=== PATIENT | female | born 1960 | race American Indian/Alaskan Native ===

== ENCOUNTER 2020-04-15 12:01 | Emergency (ER) | payer SELFPAY ==
[2020-04-15 15:02] LABS: Bilirubin,Urine NEG (Negative); Blood,Urine NEG (Negative); Color,Urine Yellow (Yellow); Mucus,Urine 1+ /HPF; Protein,Urine <15 mg/dL mg/dL (Negative)
--- NOTE | 2020-04-15 16:20 | Emergency Department Report ---
ED General Adult HPI - General Chief complaint: Back Pain/Injury Stated complaint: BACK AND SHOULDER PAIN Time Seen by Provider: 04/15/20 14:01 Source: patient Mode of arrival: Ambulatory Limitations: No Limitations - Related Data Previous Rx's Medication Instructions Recorded Last Taken Type Amoxicillin [Trimox CAP] 500 mg PO Q8H #30 capsule 09/27/13 Unknown Rx Antipyrine/Benzocaine/Glycerin 2 drops AU Q8HR #1 bottle 09/27/13 Unknown Rx [Auralgan] Ciprofloxacin/Hydrocortisone 4 drop OT BID #1 bottle 09/27/13 Unknown Rx [Cipro HC Otic 0.2%-1%] Meloxicam [Mobic] 7.5 mg PO QDAY #30 tablet 04/15/20 Unknown Rx Trolamine Salicylate/Aloe Vera 85 gm TP TID PRN #141.7 cream..g. 04/15/20 Unknown Rx [Aspercreme 10% Cream] Allergies Allergy/AdvReac Type Severity Reaction Status Date / Time No Known Allergies Allergy Verified 04/15/20 12:09 ED Review of Systems ROS: Stated complaint: BACK AND SHOULDER PAIN Other details as noted in HPI ED Past Medical Hx - Past Medical History Hx Arthritis: Yes - Surgical History Past Surgical History?: No - Social History Smoking Status: Never Smoker Substance Use Type: Alcohol, Marijuana - Medications Home Medications: Home Medications Medication Instructions Recorded Confirmed Last Taken Type Amoxicillin [Trimox CAP] 500 mg PO Q8H #30 capsule 09/27/13 Unknown Rx Antipyrine/Benzocaine/Glycerin 2 drops AU Q8HR #1 bottle 09/27/13 Unknown Rx [Auralgan] Ciprofloxacin/Hydrocortisone 4 drop OT BID #1 bottle 09/27/13 Unknown Rx [Cipro HC Otic 0.2%-1%] Meloxicam [Mobic] 7.5 mg PO QDAY #30 tablet 04/15/20 Unknown Rx Trolamine Salicylate/Aloe Vera 85 gm TP TID PRN #141.7 cream..g. 04/15/20 Unknown Rx [Aspercreme 10% Cream] ED Physical Exam - General Limitations: No Limitations General appearance: alert, in no apparent distress - Head Head exam: Present: atraumatic, normocephalic - Eye Eye exam: Present: normal appearance - ENT ENT exam: Present: mucous membranes moist - Neck Neck exam: Present: normal inspection - Respiratory Respiratory exam: Present: normal lung sounds bilaterally. Absent: respiratory distress - Cardiovascular Cardiovascular Exam: Present: regular rate, normal rhythm. Absent: systolic murmur, diastolic murmur, rubs, gallop - GI/Abdominal GI/Abdominal exam: Present: soft, normal bowel sounds - Extremities Exam Extremities exam: Present: normal inspection - Expanded Upper Extremity Exam Left Shoulder Exam: Present: full ROM, tenderness over AC joint. Absent: swelling, abrasion, laceration Upper Arm exam: Present: normal inspection, full ROM Elbow exam: Present: normal inspection, full ROM Forearm Wrist exam: Present: normal inspection, full ROM Hand Wrist exam: Present: normal inspection, full ROM - Back Exam Back exam: Present: normal inspection - Neurological Exam Neurological exam: Present: alert, oriented X3 - Psychiatric Psychiatric exam: Present: normal affect, normal mood - Skin Skin exam: Present: warm, dry, intact, normal color. Absent: rash ED Course Vital Signs 04/15/20 12:14 Temperature 98.1 F Pulse Rate 71 Respiratory 18 Rate Blood Pressure 160/89 O2 Sat by Pulse 100 Oximetry Critical care attestation.: If time is entered above; I have spent that time in minutes in the direct care of this critically ill patient, excluding procedure time. ED Disposition Clinical Impression: Shoulder pain, left Qualifiers: Chronicity: acute Qualified Code(s): M25.512 - Pain in left shoulder Left lumbar pain Qualifiers: Chronicity: acute Sciatica presence: with sciatica Disposition: DC-01 TO HOME OR SELFCARE Is pt being admited?: No Does the pt Need Aspirin: No Condition: Stable Instructions: Osteoarthritis (ED), Meloxicam (By mouth) Additional Instructions: Recommend taking Ibuprofen or Tylenol arthritis and try aspercream rub. Prescriptions: Trolamine Salicylate/Aloe Vera [Aspercreme 10% Cream] 85 gm TP TID PRN #141.7 cream..g. PRN Reason: Pain, Moderate (4-6) Meloxicam [Mobic] 7.5 mg PO QDAY #30 tablet Referrals: PRIMARY CARE, [Primary Care Provider] - 3-5 Days [facility] [Provider Group] - 3-5 Days Forms: Work/School Release Form(ED)
[2020-04-15 16:33] VITALS: BP 138/78
== END 2020-04-15 16:30 | disposition home or self-care (01) ==
LOC: ED 12:01
DX: M25.512 Pain in left shoulder (principal); M54.9 Dorsalgia, unspecified; M19.90 Unspecified osteoarthritis, unspecified site; F12.10 Cannabis abuse, uncomplicated; Z79.899 Other long term (current) drug therapy
CPT/HCPCS: 81001; 99283

== ENCOUNTER 2020-05-03 16:12 | Emergency (ER) | payer SELFPAY ==
[2020-05-03 17:32] VITALS: BP 149/89
--- NOTE | 2020-05-03 19:59 | Emergency Department Report ---
ED Eye Problem HPI - General Chief complaint: Eye Problems Stated complaint: POSS PINK EYE Time Seen by Provider: 05/03/20 19:55 Source: patient Mode of arrival: Ambulatory Limitations: No Limitations - History of Present Illness Initial comments: Patient is a 59-year-old female presents emergency room with complaints of bilateral eye irritation that began a week ago. She states that initially began in the left eye but then she also began experiencing in the right eye. She states that she has crusting, eyelash matting, frequent watering, itching eyes. She states that she has been taking [id number] pinkeye relief drops with some relief. She denies getting anything into the eye. She denies any contact lens use. She denies any use of false lashes or glue. She denies any vision changes. Past medical history of hypertension. No allergies medications. - Related Data Previous Rx's Medication Instructions Recorded Last Taken Type Amoxicillin [Trimox CAP] 500 mg PO Q8H #30 capsule 09/27/13 Unknown Rx Antipyrine/Benzocaine/Glycerin 2 drops AU Q8HR #1 bottle 09/27/13 Unknown Rx [Auralgan] Ciprofloxacin/Hydrocortisone 4 drop OT BID #1 bottle 09/27/13 Unknown Rx [Cipro HC Otic 0.2%-1%] Meloxicam [Mobic] 7.5 mg PO QDAY #30 tablet 04/15/20 Unknown Rx Trolamine Salicylate/Aloe Vera 85 gm TP TID PRN #141.7 cream..g. 04/15/20 Unknown Rx [Aspercreme 10% Cream] Ketotifen Fumarate [Allergy Eye 1 drop OP BID 7 Days #1 drops 05/03/20 Unknown Rx Drops] Polymyxin B Sulf/Trimethoprim 1 drop OP Q3HR 7 Days #1 drops 05/03/20 Unknown Rx [Polytrim Eye Drops] Allergies Allergy/AdvReac Type Severity Reaction Status Date / Time No Known Allergies Allergy Verified 04/15/20 12:09 ED Review of Systems ROS: Stated complaint: POSS PINK EYE Other details as noted in HPI Comment: All other systems reviewed and negative ED Past Medical Hx - Past Medical History Previous Medical History?: Yes Hx Arthritis: Yes - Social History Smoking Status: Never Smoker Substance Use Type: Alcohol, Marijuana - Medications Home Medications: Home Medications Medication Instructions Recorded Confirmed Last Taken Type Amoxicillin [Trimox CAP] 500 mg PO Q8H #30 capsule 09/27/13 Unknown Rx Antipyrine/Benzocaine/Glycerin 2 drops AU Q8HR #1 bottle 09/27/13 Unknown Rx [Auralgan] Ciprofloxacin/Hydrocortisone 4 drop OT BID #1 bottle 09/27/13 Unknown Rx [Cipro HC Otic 0.2%-1%] Meloxicam [Mobic] 7.5 mg PO QDAY #30 tablet 04/15/20 Unknown Rx Trolamine Salicylate/Aloe Vera 85 gm TP TID PRN #141.7 cream..g. 04/15/20 Unknown Rx [Aspercreme 10% Cream] Ketotifen Fumarate [Allergy Eye 1 drop OP BID 7 Days #1 drops 05/03/20 Unknown Rx Drops] Polymyxin B Sulf/Trimethoprim 1 drop OP Q3HR 7 Days #1 drops 05/03/20 Unknown Rx [Polytrim Eye Drops] ED Physical Exam - General Limitations: No Limitations General appearance: alert, in no apparent distress - Head Head exam: Present: atraumatic, normocephalic - Eye Eye exam: Present: PERRL, EOMI, conjunctival injection (mild bilaterally). Absent: periorbital swelling, periorbital tenderness Pupils: Present: normal accommodation - ENT ENT exam: Present: mucous membranes moist - Respiratory Respiratory exam: Absent: respiratory distress, accessory muscle use - Neurological Exam Neurological exam: Present: alert, oriented X3 - Psychiatric Psychiatric exam: Present: normal affect, normal mood - Skin Skin exam: Present: warm, dry, intact ED Course Vital Signs 05/03/20 17:31 Temperature 98.5 F Pulse Rate 92 H Respiratory 16 Rate Blood Pressure 149/89 [Right] O2 Sat by Pulse 98 Oximetry ED Medical Decision Making - Medical Decision Making Patient is a 59-year-old female presents emergency room with complaints of bilateral eye irritation that began a week ago. She states that initially began in the left eye but then she also began experiencing in the right eye. She states that she has crusting, eyelash matting, frequent watering, itching eyes. She states that she has been taking [id number] pinkeye relief drops with some relief. She denies getting anything into the eye. She denies any contact lens use. She denies any use of false lashes or glue. She denies any vision changes. Past medical history of hypertension. No allergies medications. vitals are stable. on exam: Mild conjunctival injection bilaterally, PERRLA, EOMI, no periorbital edema or erythema, no visualized foreign bodies or ulcerations. Examination consistent with very mild conjunctivitis. Patient given prescription for Zaditor and Polytrim eyedrops. Advised patient Please use medication as prescribed. Separate eyedrops by one hour. Follow-up with a primary care doctor. Follow-up with plate and weld inspector if symptoms are not improving. Return to emergency room for any new or worsening symptoms. Critical care attestation.: If time is entered above; I have spent that time in minutes in the direct care of this critically ill patient, excluding procedure time. ED Disposition Clinical Impression: Conjunctivitis Qualifiers: Conjunctivitis type: acute Acute conjunctivitis type: unspecified Laterality: bilateral Qualified Code(s): H10.33 - Unspecified acute conjunctivitis, bilateral Disposition: DC- TO HOME OR SELFCARE Is pt being admited?: No Does the pt Need Aspirin: No Condition: Stable Instructions: Conjunctivitis (ED) Additional Instructions: Please use medication as prescribed. Separate eyedrops by one hour. Follow-up with a primary care doctor. Follow-up with plate and weld inspector if symptoms are not improving. Return to emergency room for any new or worsening symptoms. Prescriptions: Ketotifen Fumarate [Allergy Eye Drops] 1 drop OP BID 7 Days #1 drops Polymyxin B Sulf/Trimethoprim [Polytrim Eye Drops] 1 drop OP Q3HR 7 Days #1 drops Referrals: KB STARR MD [Staff Physician] - 2-3 Days [facility] [Provider Group] - 2-3 Days [facility] [Provider Group] - 2-3 Days Forms: Work/School Release Form(ED) Time of Disposition: 19:57 Print Language: TURKISH
== END 2020-05-03 20:00 | disposition home or self-care (01) ==
LOC: ED 16:12
DX: H10.33 Unspecified acute conjunctivitis, bilateral (principal); M13.88 Other specified arthritis, other site; F12.10 Cannabis abuse, uncomplicated; Z79.899 Other long term (current) drug therapy
CPT/HCPCS: 99281